=== PATIENT | male | born 1950 | race Caucasian/White ===

== ENCOUNTER 2016-06-26 05:43 | Emergency (ER) | payer SELFPAY ==
[2016-06-26 06:21] LABS: BASO # 0.2 K/mm3 (0.0-0.2); BASO % 1.9 % (0.0-1.0); EOS # 0.6 K/mm3 (0.0-0.50); EOS % 5.9 % (0.0-3.0); LARGE UNSTAINED CELL # 0.2 K/mm3 (0.0-0.4); LARGE UNSTAINED CELL % 2.3 % (0.0-4.0); LYMPH % 18.8 % (24.0-44.0); MEAN CORPUSCULAR HEMOGLOBIN 32.1 pg (27.0-33.0); MEAN CORPUSCULAR HGB CONC 35.4 g/dl (32.0-36.5); MEAN CORPUSCULAR VOLUME 90.7 fl (80.0-96.0); MONO # 0.7 K/mm3 (0.0-0.8); MONO % 7.3 % (0.0-5.0); NEUTROPHILS % 63.8 % (36.0-66.0); PLATELET COUNT, AUTOMATED 232 k/mm3 (150-450); RED CELL DISTRIBUTION WIDTH 13.1 % (11.5-14.5); WHITE BLOOD COUNT 9.4 K/mm3 (4.0-10.0)
[2016-06-26 06:56] LABS: ANION GAP 8 MEQ/L (8-16); BLOOD UREA NITROGEN 15 MG/DL (7-18); CALCIUM LEVEL 9.2 MG/DL (8.8-10.2); CARBON DIOXIDE LEVEL 30 MEQ/L (21-32); CHLORIDE LEVEL 100 MEQ/L (98-107); CREATININE FOR GFR 1.01 MG/DL (0.70-1.30); GLOMERULAR FILTRATION RATE > 60.0 (>49); GLUCOSE, FASTING 103 MG/DL (80-110); POTASSIUM SERUM 4.2 MEQ/L (3.5-5.1); SODIUM LEVEL 138 MEQ/L (136-145)
[2016-06-26 07:32] LABS: ALBUMIN 4.3 GM/DL (3.2-5.2); ALBUMIN/GLOBULIN RATIO 1.26 (1.00-1.93); ALKALINE PHOSPHATASE 72 U/L (45-117); ALT/SGPT 28 U/L (12-78); AST/SGOT 27 U/L (15-37); BILIRUBIN,DIRECT 0.1 MG/DL (0.0-0.2); BILIRUBIN,TOTAL 0.7 MG/DL (0.2-1.0); TOTAL PROTEIN 7.7 GM/DL (6.4-8.2)
[2016-06-26] MEDS ORDERED: ASPIRIN 81 MG CHEW TABLET As Ordered ONE (07:49)
--- NOTE | 2016-06-26 09:06 | EDDOCDS ---
Nurse's Notes [facility] Name: Quentin Betts Age: 65 yrs Sex: Male : 1950 Arrival Date: 06/26/2016 Time: 05:43 Bed 4 Private MD: Diagnosis: Chest pain, unspecified Presentation: 06/26 05:54 Presenting complaint: Patient states: Has been up all night with chest discomfort. Went kmg1 for a drive and got hot chocolate at [employer] then felt better. Upon returning home, pain returned. Mild cough. 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 Suicide/Homicide risk assessment- the patient denies having any suicidal and/or homicidal ideations and does not present with any other emotional, behavioral or mental health complaints. Status: Patient is not a service operations manager or dependent. Transition of care: patient was not received from another setting of care. 05:54 Acuity: JS Level 2 [facility] [place] 05:[place] Method Of Arrival: Walkin/Carried/[place]std [facility] [place] T[place] Assessment: 05:59 General: Appears in no apparent distress, comfortable, Behavior is appropriate for age, kmg1 cooperative, pleasant. Pain: Location: anterior aspect of left upper chest Pain currently is 5 out of 10 on a pain scale. Quality of pain is described as aching, dull, Pain began 1 day ago. Cardiovascular: Chest pain is described as Pain is 5 out of 10 on a pain scale. radiates Does not radiate. episodes are continuous began 1 day ago. Respiratory: Airway is patent Respiratory effort is even, unlabored, Respiratory pattern is regular, symmetrical. Historical: - Allergies: No known drug Allergies; - Home Meds: 1. atenolol 50 mg Oral tab 2 tabs once daily (Last dose: 06/26/2016 03:00) 2. lisinopril-hydrochlorothiazide 20-25 mg oral tab 1 tab once daily for Hypertension (Last dose: 06/25/2016) - PMHx: Hypertension; - PSHx: eye surgery; - Social history: Smoking status: Patient states was never smoker of tobacco. No barriers to communication noted, The patient speaks fluent [place] Citizen, Speaks appropriately for age. - : The pt / caregiver states he / she is not on anticoagulants. Home medication list is obtained from the patient. - Exposure Risk Screening:: None identified. Screenin:50 Screening information is obtained from the patient. Fall risk: No risks identified. jjr Assistance ADL's: requires no assistance with activities of daily living. Abuse/DV Screen: The patient / caregiver reports he/she is: not in a situation that causes fear, pain or injury. Nutritional screening: No deficits noted. Advance Directives: There is no active DNR order. home support is adequate. Assessment: 06:12 Adult Sepsis Screening: The patient does not have new or worsening altered mentation. mgs Patient's respiratory rate is less than 22. Systolic blood pressure is greater than 100. Patient has a qSOFA score of 0- Negative Sepsis Screen. General: Appears in no apparent distress, Behavior is appropriate for age, cooperative. Pain: Denies pain. Neurological: Level of Consciousness is awake, alert, Oriented to person, place, time. Cardiovascular: Capillary refill < 3 seconds Heart tones S1 S2 present Rhythm is sinus rhythm No ectopy. Cardiovascular: Chest pain is denied. Respiratory: Airway is patent Respiratory effort is even, unlabored, Respiratory pattern is regular, symmetrical. Derm: Skin is pink, warm & dry. 07:57 General: Appears in no apparent distress, well nourished, well groomed, Behavior is jjr appropriate for age. General: pt reports taking extra atenolol in the past to relieve left sided chest discomfort. Neurological: No deficits noted. Cardiovascular: Rhythm is sinus rhythm Chest pain is described as Pain is 1 out of 10 on a pain scale. is located in left anterior chest wall episodes are continuous. Respiratory: Airway is patent Respiratory effort is even, unlabored, Respiratory pattern is regular. Derm: Skin is pink, warm & dry. 09:03 General: Appears in no apparent distress. Cardiovascular: Rhythm is sinus rhythm Chest jjr pain is denied. Respiratory: No deficits noted. Derm: No deficits noted. Vital Signs: 05:59 BP 158 / 99; Pulse 62; Resp 18; Temp 97.9(TE); Pulse Ox 98% on R/A; Weight 81.65 kg kmg1 (R); Height 5 ft. 9 in. (175.26 cm) (R); Pain 5/10; 06:26 BP 149 / 90 (auto/); jjr 06:26 Pulse 62 MON; Pulse Ox 94% ; jjr 06:41 BP 149 / 87 (auto/); jjr 06:41 Pulse 60 MON; Pulse Ox 98% ; jjr 06:56 BP 152 / 83 (auto/); jjr 06:56 Pulse 60 MON; Resp 18; Pulse Ox 100% on R/A; Pain 1/10; jjr 07:55 BP 169 / 80 (auto/); jjr 07:56 Pulse 74 MON; Pulse Ox 100% ; jjr 08:25 BP 163 / 94 (auto/); jjr 08:25 Pulse 64 MON; Resp 18; Pulse Ox 95% on R/A; jjr 09:02 BP 167 / 85; Pulse 70; Resp 18; Temp 97.3(O); Pulse Ox 98% on R/A; Pain 0/10; jjr 05:59 Body Mass Index 26.58 (81.65 kg, 175.26 cm) [facility] [place]als: 05:59 Log In Time: June 26, 2016 at 05:43. [facility] [place] Course: 05:51 Patient visited by Sanjuanita Barragan. gjb 05:51 Patient moved to Waiting gjb 05:56 Triage Initiated km 06:05 Patient moved to 4 km 06:06 Cuong Love,RN is Primary Nurse. mgs 06:13 Patient visited by Cuong Love RN. mgs 06:13 Pt greeted and oriented to ED. Patient advised of names of staff involved in care, sussy location of call mo, wait times and NPO status. Patient has correct armband on for positive identification. Placed in gown. Bed in low position. Call light in reach. Side rails up X2. hospital monitor on. Pulse ox on. NIBP on. 06:13 EKG done. (by ED staff). Reviewed by Cuong Rudd DO. sussy 06:14 Patient visited by Prudence Kirby, JUAN JOSE. sussy 06:19 Patient visited by Cora Rivas,FELIPE. af2 06:19 The patient / caregiver is instructed regarding the plan of care and ED course. af2 06:19 Inserted saline lock: 18 gauge in right antecubital area and blood collected. The af2 patient tolerated the procedure well. 07:09 Garth Ortiz MD is Attending Physician. br1 07:18 Patient visited by Garth Ortiz MD. br1 07:57 Patient visited by Alyson Voss RN. jjr 08:40 Patient name changed from Quentin\Meg\Wendi\S\Roxane\S\ to Quentin\Meg\Shahid\S\Marlinhart. EDMS 08:42 [facility] Payment Agreement was scanned into [employer] and attached to record. lg 08:51 Patient visited by Garth Ortiz MD. br1 08:51 Guillermo Colvin PA is Referral Physician. br1 09:03 Discontinued lock intact, bleeding controlled, pressure dressing applied, No jjr redness/swelling at site. No procedures done that require assistance. Administered Medications: 07:56 Drug: Aspirin 324 mg [aspirin 81 mg chewable tablet (4 tabs)] Route: PO; jjr Order Results: Lab Order: Basic Metabolic Profile; SPEC'M 06/26/16 06:15 Test: GLUCOSE, FASTING; Value: 103; Range: 80-110; Units: MG/DL; Status: F Test: BLOOD UREA NITROGEN; Value: 15; Range: 7-18; Units: MG/DL; Status: F Test: CREATININE FOR GFR; Value: 1.01; Range: 0.70-1.30; Units: MG/DL; Status: F Test: GLOMERULAR FILTRATION RATE; Value: > 60.0; Range: >49; Status: F Test: SODIUM LEVEL; Value: 138; Range: 136-145; Units: MEQ/L; Status: F Test: POTASSIUM SERUM; Value: 4.2; Range: 3.5-5.1; Units: MEQ/L; Status: F Test: CHLORIDE LEVEL; Value: 100; Range: 98-107; Units: MEQ/L; Status: F Test: CARBON DIOXIDE LEVEL; Value: 30; Range: 21-32; Units: MEQ/L; Status: F Test: ANION GAP; Value: 8; Range: 8-16; Units: MEQ/L; Status: F Test: CALCIUM LEVEL; Value: 9.2; Range: 8.8-10.2; Units: MG/DL; Status: F Test Note: ; Units are mL/min/1.73 m2 Chronic Kidney Disease Staging per NKF: Stage I & II GFR >=60 Normal to Mildly Decreased Stage III GFR 30-59 Moderately Decreased Stage IV GFR 15-29 Severely Decreased Stage V GFR <15 Very Little GFR Left ESRD GFR <15 on SALVAGE REPAIRER Lab Order: CBC with Diff; SPEC'M 06/26/16 06:15 Test: WHITE BLOOD COUNT; Value: 9.4; Range: 4.0-10.0; Units: K/mm3; Status: F Test: RED BLOOD COUNT; Value: 5.36; Range: 4.30-6.10; Units: M/mm3; Status: F Test: HEMOGLOBIN; Value: 17.2; Range: 14.0-18.0; Units: g/dl; Status: F Test: HEMATOCRIT; Value: 48.6; Range: 42.0-52.0; Units: %; Status: F Test: MEAN CORPUSCULAR VOLUME; Value: 90.7; Range: 80.0-96.0; Units: fl; Status: F Test: MEAN CORPUSCULAR HEMOGLOBIN; Value: 32.1; Range: 27.0-33.0; Units: pg; Status: F Test: MEAN CORPUSCULAR HGB CONC; Value: 35.4; Range: 32.0-36.5; Units: g/dl; Status: F Test: RED CELL DISTRIBUTION WIDTH; Value: 13.1; Range: 11.5-14.5; Units: %; Status: F Test: PLATELET COUNT, AUTOMATED; Value: 232; Range: 150-450; Units: k/mm3; Status: F Test: NEUTROPHILS %; Value: 63.8; Range: 36.0-66.0; Units: %; Status: F Test: LYMPH %; Value: 18.8; Range: 24.0-44.0; Abnormal: Below low normal; Units: %; Status: F Test: MONO %; Value: 7.3; Range: 0.0-5.0; Abnormal: Above high normal; Units: %; Status: F Test: EOS %; Value: 5.9; Range: 0.0-3.0; Abnormal: Above high normal; Units: %; Status: F Test: BASO %; Value: 1.9; Range: 0.0-1.0; Abnormal: Above high normal; Units: %; Status: F Test: LARGE UNSTAINED CELL %; Value: 2.3; Range: 0.0-4.0; Units: %; Status: F Test: NEUTROPHILS #; Value: 6.0; Range: 1.8-7.7; Units: K/mm3; Status: F Test: LYMPH #; Value: 2.0; Range: 1.5-4.5; Units: K/mm3; Status: F Test: MONO #; Value: 0.7; Range: 0.0-0.8; Units: K/mm3; Status: F Test: EOS #; Value: 0.6; Range: 0.0-0.50; Abnormal: Above high normal; Units: K/mm3; Status: F Test: BASO #; Value: 0.2; Range: 0.0-0.2; Units: K/mm3; Status: F Test: LARGE UNSTAINED CELL #; Value: 0.2; Range: 0.0-0.4; Units: K/mm3; Status: F Lab Order: Cardiac Injury Profile; SPEC' 06/26/16 06:15 Test: CPK CREATINE PHOSPHOKINASE; Value: 102; Range: 39-308; Units: U/L; Status: F Test: CK-MB VALUE MASS; Value: 2.2; Range: 0.0-3.6; Units: NG/ML; Status: F Test: MB/CK RELATIVE INDEX; Value: 2.15; Range: < OR =4; Status: F Test Note: ; DIAGNOSIS CRITERIA MMB ng/ml Relative Index (RI) NON-AMI < or = 5 N/A LAMBERT ZONE > 5 < or = 4 AMI > 5 > 4 Lab Order: Troponin; [facility] 06/26/16 06:15 Test: TROPONIN I; Value: < 0.02; Range: < 0.10; Units: NG/ML; Status: F Test Note: ; Troponin I Reference Interval for [place]adows LOCI: 99th Percentile= 0.00-0.045 ng/ml Risk Stratification: <= 0.10 ng/ml Decreased Risk for Adverse Clinical Events. 0.10-1.50 ng/ml Increased Risk for Adverse Clinical Events. Evaluation of additional criterion and/or repeat testing in 2-6 hours is suggested to rule out myocardial damage. >= 1.50 ng/ml Indicative of Myocardial Injury. Lab Order: LIPASE; SPEC' 06/26/16 06:15 Test: LIPASE; Value: 194; Range: 73-393; Units: U/L; Status: F Lab Order: LIVER PROFILE; SPEC'M 06/26/16 06:15 Test: AST/SGOT; Value: 27; Range: 15-37; Units: U/L; Status: F Test: ALT/SGPT; Value: 28; Range: 12-78; Units: U/L; Status: F Test: ALKALINE PHOSPHATASE; Value: 72; Range: 45-117; Units: U/L; Status: F Test: BILIRUBIN,TOTAL; Value: 0.7; Range: 0.2-1.0; Units: MG/DL; Status: F Test: BILIRUBIN,DIRECT; Value: 0.1; Range: 0.0-0.2; Units: MG/DL; Status: F Test: TOTAL PROTEIN; Value: 7.7; Range: 6.4-8.2; Units: GM/DL; Status: F Test: ALBUMIN; Value: 4.3; Range: 3.2-5.2; Units: GM/DL; Status: F Test: ALBUMIN/GLOBULIN RATIO; Value: 1.26; Range: 1.00-1.93; Status: F Outcome: 08:51 Patient left against medical advice. br1 09:03 Discharge Assessment: patient administered narcotics - no. The following High Risk jjr Discharge criteria are identified: None. The patient is leaving AMA: AMA form signed, Notification of AMA status is made to the ED attending physician. Condition: stable. Discharge instructions given to patient, Instructed on discharge instructions, follow up and referral plans. Demonstrated understanding of instructions. No special radiology studies were completed. Property :Personal belongings accompany Pt. 09:05 Patient left the ED. jjr Signatures: Dispatcher [employer] EDMaria G Sultana, RN RN kmg1 Nilda Mckinley, Garth Burkett lg, MD MD br1 Alyson Voss RN RN jjPrudence Santiago, Cuong Mclean RN RN mgs Fulton, Amber, RN RN af2 Sanjuanita Barragan MTDD
--- NOTE | 2016-06-26 09:06 | EDDOCDS ---
Physician Documentation [facility] Name: Quentin Betts Age: 65 yrs Sex: Male : 1950 Arrival Date: 06/26/2016 Time: 05:43 Bed 4 Private MD: Disposition: 06/26/16 08:51 Patient has left against medical advice. Impression: Chest pain, unspecified. - Patients states they are going to Home/Self Care. - Condition is Stable. - Discharge Instructions: Nonspecific Chest Pain. Medication Reconciliation, Local Pharmacy Hours form. Follow up: Guillermo Colvin PA; When: As soon as possible; Reason: Further diagnostic work-up, Recheck today's complaints. - Problem is new. - Symptoms are unchanged. - Notes: You were seen in the ED for chest pain. Bloodwork along with EKG of the heart and chest Xray showed no clear cause of the symptoms. Although recommended to stay for observation and further evaluation you have declined and elected to leave against our medical advice. Call your doctor to arrange to be seen as soon as possible for ongoing evaluation and return to the ED at any time if you change your mind or your symptoms worsen. Historical: - Allergies: No known drug Allergies; - Home Meds: 1. atenolol 50 mg Oral tab 2 tabs once daily (Last dose: 06/26/2016 03:00) 2. lisinopril-hydrochlorothiazide 20-25 mg oral tab 1 tab once daily for Hypertension (Last dose: 06/25/2016) - PMHx: Hypertension; - PSHx: eye surgery; - Social history: Smoking status: Patient states was never smoker of tobacco. No barriers to communication noted, The patient speaks fluent [place], Speaks appropriately for age. - : The pt / caregiver states he / she is not on anticoagulants. Home medication list is obtained from the patient. - Exposure Risk Screening:: None identified. Vital Signs: 06/26 05:59 BP 158 / 99; Pulse 62; Resp 18; Temp 97.9(TE); Pulse Ox 98% on R/A; Weight 81.65 kg / kmg1 180.01 lbs (R); Height 5 ft. 9 in. (175.26 cm) (R); Pain 5/10; 06:26 BP 149 / 90 (auto/); jjr 06:26 Pulse 62 MON; Pulse Ox 94% ; jjr 06:41 BP 149 / 87 (auto/); jjr 06:41 Pulse 60 MON; Pulse Ox 98% ; jjr 06:56 BP 152 / 83 (auto/); jjr 06:56 Pulse 60 MON; Resp 18; Pulse Ox 100% on R/A; Pain 1/10; jjr 07:55 BP 169 / 80 (auto/); jjr 07:56 Pulse 74 MON; Pulse Ox 100% ; jjr 08:25 BP 163 / 94 (auto/); jjr 08:25 Pulse 64 MON; Resp 18; Pulse Ox 95% on R/A; jjr 09:02 BP 167 / 85; Pulse 70; Resp 18; Temp 97.3(O); Pulse Ox 98% on R/A; Pain 0/10; jjr 05:59 Body Mass Index 26.58 (81.65 kg, 175.26 cm) km MDM: 06:07 Forensic Document Examiner/Pulse Ox/q 30 min VS ordered. jun 06:07 IV Saline Lock ordered. jun 06:07 Rhythm Strip to chart ordered. jun 06:07 Undress patient appropriately for examination ordered. jun 06:07 Basic Metabolic Profile Ordered. EDMS 06:07 CBC with Diff Ordered. EDMS 06:07 Cardiac Injury Profile Ordered. EDMS 06:07 Troponin Ordered. EDMS 06:08 ECG WITH READING ER PHYS+CARDIAG ordered. EDMS 07:10 CBC with Diff Reviewed. br1 07:10 Basic Metabolic Profile Reviewed. br1 07:10 Cardiac Injury Profile Reviewed. br1 07:10 Troponin Reviewed. br1 07:19 Chest, 2 View (pa\E\lat) Ordered. EDMS 07:21 LIPASE Ordered. EDMS 07:21 LIVER PROFILE Ordered. EDMS 07:24 Aspirin 324 mg PO once ordered. br1 07:46 Financial registration complete. lg 08:42 [facility] Payment Agreement was scanned into [employer] and attached to record. lg Administered Medications: 07:56 Drug: Aspirin 324 mg [aspirin 81 mg chewable tablet (4 tabs)] Route: PO; jjr Signatures: Dispatcher [employer] EDMS Maria G Morillo RN RN kmg1 Kareen Nelson RN RN jan Ganter, LoriLee, Reg Reg lg Garth Ortiz MD MD br1 Alyson Voss RN RN jjr The chart was reviewed and I authenticate all verbal orders and agree with the evaluation and treatment provided.Corrections: (The following items were deleted from the chart) 07: 07:19 LIVER PROFILE+LAB ordered. EDMS EDMS 07: 07:19 LIPASE+LAB ordered. EDMS EDMS Attachments: 08:42 [facility] Payment Agreement lg MTDD
--- NOTE | 2016-06-26 09:17 | REP ---
CHEST X-RAY: TWO VIEWS. History: Chest pain. Findings: The lungs are well inflated and clear. Pleural angles are sharp. Heart size is normal. No significant bony abnormality is seen. Impression: No active disease. Signed by Rupesh Snowden MD 06/26/2016 10:30 A
--- NOTE | 2016-06-26 09:30 | ECGEPIP ---
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
--- NOTE | 2016-06-28 10:06 | EDDOCDS ---
Nurse's Notes [facility] Name: Eli Betts Age: 65 yrs Sex: Male : 1950 Arrival Date: 06/26/2016 Time: 05:43 Bed 4 Private MD: Diagnosis: Chest pain, unspecified Presentation: 06/26 05:54 Presenting complaint: Patient states: Has been up all night with chest discomfort. Went kmg1 for a drive and got hot chocolate at [employer] then felt better. Upon returning home, pain returned. Mild cough. 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 Suicide/Homicide risk assessment- the patient denies having any suicidal and/or homicidal ideations and does not present with any other emotional, behavioral or mental health complaints. 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 Transition of care: patient was not received from another setting of care. 05:54 Acuity: JS Level 2 [facility] [place] 05:54 Method Of Arrival: Walkin/Carried/Asstd [facility] [place] Triage Assessment: 05:59 General: Appears in no apparent distress, comfortable, Behavior is appropriate for age, kmg1 cooperative, pleasant. Pain: Location: anterior aspect of left upper chest Pain currently is 5 out of 10 on a pain scale. Quality of pain is described as aching, dull, Pain began 1 day ago. Cardiovascular: Chest pain is described as Pain is 5 out of 10 on a pain scale. radiates Does not radiate. episodes are continuous began 1 day ago. Respiratory: Airway is patent Respiratory effort is even, unlabored, Respiratory pattern is regular, symmetrical. Historical: - Allergies: No known drug Allergies; - Home Meds: 1. atenolol 50 mg Oral tab 2 tabs once daily (Last dose: 06/26/2016 03:00) 2. lisinopril-hydrochlorothiazide 20-25 mg oral tab 1 tab once daily for Hypertension (Last dose: 06/25/2016) - PMHx: Hypertension; - PSHx: eye surgery; - Social history: Smoking status: Patient states was never smoker of tobacco. No barriers to communication noted, The patient speaks fluent Guinean, Speaks appropriately for age. - : The pt / caregiver states he / she is not on anticoagulants. Home medication list is obtained from the patient. - Exposure Risk Screening:: None identified. Screenin:50 Screening information is obtained from the patient. Fall risk: No risks identified. jjr Assistance ADL's: requires no assistance with activities of daily living. Abuse/DV Screen: The patient / caregiver reports he/she is: not in a situation that causes fear, pain or injury. Nutritional screening: No deficits noted. Advance Directives: There is no active DNR order. home support is adequate. Assessment: 06:12 Adult Sepsis Screening: The patient does not have new or worsening altered mentation. mgs Patient's respiratory rate is less than 22. Systolic blood pressure is greater than 100. Patient has a qSOFA score of 0- Negative Sepsis Screen. General: Appears in no apparent distress, Behavior is appropriate for age, cooperative. Pain: Denies pain. Neurological: Level of Consciousness is awake, alert, Oriented to person, place, time. Cardiovascular: Capillary refill < 3 seconds Heart tones S1 S2 present Rhythm is sinus rhythm No ectopy. Cardiovascular: Chest pain is denied. Respiratory: Airway is patent Respiratory effort is even, unlabored, Respiratory pattern is regular, symmetrical. Derm: Skin is pink, warm & dry. 07:57 General: Appears in no apparent distress, well nourished, well groomed, Behavior is jjr appropriate for age. General: pt reports taking extra atenolol in the past to relieve left sided chest discomfort. Neurological: No deficits noted. Cardiovascular: Rhythm is sinus rhythm Chest pain is described as Pain is 1 out of 10 on a pain scale. is located in left anterior chest wall episodes are continuous. Respiratory: Airway is patent Respiratory effort is even, unlabored, Respiratory pattern is regular. Derm: Skin is pink, warm & dry. 09:03 General: Appears in no apparent distress. Cardiovascular: Rhythm is sinus rhythm Chest jjr pain is denied. Respiratory: No deficits noted. Derm: No deficits noted. Vital Signs: 05:59 BP 158 / 99; Pulse 62; Resp 18; Temp 97.9(TE); Pulse Ox 98% on R/A; Weight 81.65 kg kmg1 (R); Height 5 ft. 9 in. (175.26 cm) (R); Pain 5/10; 06:26 BP 149 / 90 (auto/); jjr 06:26 Pulse 62 MON; Pulse Ox 94% ; jjr 06:41 BP 149 / 87 (auto/); jjr 06:41 Pulse 60 MON; Pulse Ox 98% ; jjr 06:56 BP 152 / 83 (auto/); jjr 06:56 Pulse 60 MON; Resp 18; Pulse Ox 100% on R/A; Pain 1/10; jjr 07:55 BP 169 / 80 (auto/); jjr 07:56 Pulse 74 MON; Pulse Ox 100% ; jjr 08:25 BP 163 / 94 (auto/); jjr 08:25 Pulse 64 MON; Resp 18; Pulse Ox 95% on R/A; jjr 09:02 BP 167 / 85; Pulse 70; Resp 18; Temp 97.3(O); Pulse Ox 98% on R/A; Pain 0/10; jjr 05:59 Body Mass Index 26.58 (81.65 kg, 175.26 cm) [facility] [place] Vitals: 05:59 Log In Time: June 26, 2016 at 05:43. [facility] [place] ED Course: 05:51 Patient visited by Sanjuanita Barragan. gjb 05:51 Patient moved to Waiting gjb 05:56 Triage Initiated km 06:05 Patient moved to 4 km 06:06 Marianne Love,RN is Primary Nurse. mgs 06:13 Patient visited by Marianne Love RN. mgs 06:13 Pt greeted and oriented to ED. Patient advised of names of staff involved in care, sussy location of call mo, wait times and NPO status. Patient has correct armband on for positive identification. Placed in gown. Bed in low position. Call light in reach. Side rails up X2. playground monitor on. Pulse ox on. NIBP on. 06:13 EKG done. (by ED staff). Reviewed by Marianne Rudd DO. sussy 06:14 Patient visited by Prudence Kirby, JUAN JOSE. sussy 06:19 Patient visited by Cora Rivas,FELIPE. af2 06:19 The patient / caregiver is instructed regarding the plan of care and ED course. af2 06:19 Inserted saline lock: 18 gauge in right antecubital area and blood collected. The af2 patient tolerated the procedure well. 07:09 Garth Ortiz MD is Attending Physician. br1 07:18 Patient visited by Garth Ortiz MD. br1 07:57 Patient visited by Alyson Voss RN. jjr 08:40 Patient name changed from Eli\Meg\Wendi\S\Inggisel\S\ to Eli\Meg\Shahid\S\Inglehart. EDMS 08:42 [facility] Payment Agreement was scanned into [employer] and attached to record. lg 08:51 Patient visited by Garth Ortiz MD. br1 08:51 Guillermo Colvin PA is Referral Physician. br1 09:03 Discontinued lock intact, bleeding controlled, pressure dressing applied, No jjr redness/swelling at site. No procedures done that require assistance. 09:23 Chest, 2 View (pa\E\lat) Returned. EDMS 09:46 EKG-ADULT Returned. EDMS 13:13 Refusal of Services was scanned into [employer] and attached to record. gb 13:13 T-Sheet-- Draft Copy was scanned into [employer] and attached to record. gb 13:13 ECG/EKG was scanned into [employer] and attached to record. gb Administered Medications: 07:56 Drug: Aspirin 324 mg [aspirin 81 mg chewable tablet (4 tabs)] Route: PO; jjr Attachments: 13:13 Refusal of Services gb Order Results: Lab Order: Basic Metabolic Profile; [facility] 06/26/16 06:15 Test: GLUCOSE, FASTING; Value: 103; Range: 80-110; Units: MG/DL; Status: F Test: BLOOD UREA NITROGEN; Value: 15; Range: 7-18; Units: MG/DL; Status: F Test: CREATININE FOR GFR; Value: 1.01; Range: 0.70-1.30; Units: MG/DL; Status: F Test: GLOMERULAR FILTRATION RATE; Value: > 60.0; Range: >49; Status: F Test: SODIUM LEVEL; Value: 138; Range: 136-145; Units: MEQ/L; Status: F Test: POTASSIUM SERUM; Value: 4.2; Range: 3.5-5.1; Units: MEQ/L; Status: F Test: CHLORIDE LEVEL; Value: 100; Range: 98-107; Units: MEQ/L; Status: F Test: CARBON DIOXIDE LEVEL; Value: 30; Range: 21-32; Units: MEQ/L; Status: F Test: ANION GAP; Value: 8; Range: 8-16; Units: MEQ/L; Status: F Test: CALCIUM LEVEL; Value: 9.2; Range: 8.8-10.2; Units: MG/DL; Status: F Test Note: ; Units are mL/min/1.73 m2 Chronic Kidney Disease Staging per NKF: Stage I & II GFR >=60 Normal to Mildly Decreased Stage III GFR 30-59 Moderately Decreased Stage IV GFR 15-29 Severely Decreased Stage V GFR <15 Very Little GFR Left ESRD GFR <15 on WELL LOGGING CAPTAIN Lab Order: CBC with Diff; SPEC'M 06/26/16 06:15 Test: WHITE BLOOD COUNT; Value: 9.4; Range: 4.0-10.0; Units: K/mm3; Status: F Test: RED BLOOD COUNT; Value: 5.36; Range: 4.30-6.10; Units: M/mm3; Status: F Test: HEMOGLOBIN; Value: 17.2; Range: 14.0-18.0; Units: g/dl; Status: F Test: HEMATOCRIT; Value: 48.6; Range: 42.0-52.0; Units: %; Status: F Test: MEAN CORPUSCULAR VOLUME; Value: 90.7; Range: 80.0-96.0; Units: fl; Status: F Test: MEAN CORPUSCULAR HEMOGLOBIN; Value: 32.1; Range: 27.0-33.0; Units: pg; Status: F Test: MEAN CORPUSCULAR HGB CONC; Value: 35.4; Range: 32.0-36.5; Units: g/dl; Status: F Test: RED CELL DISTRIBUTION WIDTH; Value: 13.1; Range: 11.5-14.5; Units: %; Status: F Test: PLATELET COUNT, AUTOMATED; Value: 232; Range: 150-450; Units: k/mm3; Status: F Test: NEUTROPHILS %; Value: 63.8; Range: 36.0-66.0; Units: %; Status: F Test: LYMPH %; Value: 18.8; Range: 24.0-44.0; Abnormal: Below low normal; Units: %; Status: F Test: MONO %; Value: 7.3; Range: 0.0-5.0; Abnormal: Above high normal; Units: %; Status: F Test: EOS %; Value: 5.9; Range: 0.0-3.0; Abnormal: Above high normal; Units: %; Status: F Test: BASO %; Value: 1.9; Range: 0.0-1.0; Abnormal: Above high normal; Units: %; Status: F Test: LARGE UNSTAINED CELL %; Value: 2.3; Range: 0.0-4.0; Units: %; Status: F Test: NEUTROPHILS #; Value: 6.0; Range: 1.8-7.7; Units: K/mm3; Status: F Test: LYMPH #; Value: 2.0; Range: 1.5-4.5; Units: K/mm3; Status: F Test: MONO #; Value: 0.7; Range: 0.0-0.8; Units: K/mm3; Status: F Test: EOS #; Value: 0.6; Range: 0.0-0.50; Abnormal: Above high normal; Units: K/mm3; Status: F Test: BASO #; Value: 0.2; Range: 0.0-0.2; Units: K/mm3; Status: F Test: LARGE UNSTAINED CELL #; Value: 0.2; Range: 0.0-0.4; Units: K/mm3; Status: F Lab Order: Cardiac Injury Profile; SPEC'M 06/26/16 06:15 Test: CPK CREATINE PHOSPHOKINASE; Value: 102; Range: 39-308; Units: U/L; Status: F Test: CK-MB VALUE MASS; Value: 2.2; Range: 0.0-3.6; Units: NG/ML; Status: F Test: MB/CK RELATIVE INDEX; Value: 2.15; Range: < OR =4; Status: F Test Note: ; DIAGNOSIS CRITERIA MMB ng/ml Relative Index (RI) NON-AMI < or = 5 N/A LAMBERT ZONE > 5 < or = 4 AMI > 5 > 4 Lab Order: Troponin; SPEC'M 06/26/16 06:15 Test: TROPONIN I; Value: < 0.02; Range: < 0.10; Units: NG/ML; Status: F Test Note: ; Troponin I Reference Interval for Siemens [place] LOCI: 99th Percentile= 0.00-0.045 ng/ml Risk Stratification: <= 0.10 ng/ml Decreased Risk for Adverse Clinical Events. 0.10-1.50 ng/ml Increased Risk for Adverse Clinical Events. Evaluation of additional criterion and/or repeat testing in 2-6 hours is suggested to rule out myocardial damage. >= 1.50 ng/ml Indicative of Myocardial Injury. Lab Order: LIPASE; SPEC'M 06/26/16 06:15 Test: LIPASE; Value: 194; Range: 73-393; Units: U/L; Status: F Lab Order: LIVER PROFILE; SPEC'M 06/26/16 06:15 Test: AST/SGOT; Value: 27; Range: 15-37; Units: U/L; Status: F Test: ALT/SGPT; Value: 28; Range: 12-78; Units: U/L; Status: F Test: ALKALINE PHOSPHATASE; Value: 72; Range: 45-117; Units: U/L; Status: F Test: BILIRUBIN,TOTAL; Value: 0.7; Range: 0.2-1.0; Units: MG/DL; Status: F Test: BILIRUBIN,DIRECT; Value: 0.1; Range: 0.0-0.2; Units: MG/DL; Status: F Test: TOTAL PROTEIN; Value: 7.7; Range: 6.4-8.2; Units: GM/DL; Status: F Test: ALBUMIN; Value: 4.3; Range: 3.2-5.2; Units: GM/DL; Status: F Test: ALBUMIN/GLOBULIN RATIO; Value: 1.26; Range: 1.00-1.93; Status: F Radiology Order: EKG-ADULT Test: EKG-ADULT REASON FOR EXAMINATION: Chest Pain; Stationary ECG Study; [facility] - ED; ; Test Date: 2016-06-26; Pat Name: ELI BETTS Department:; Room: -; Gender: M Nurse Emergency: henrique; : 1950 Requested By: MARIANNE Laurent; Order Number: [id number] Balbir MD: Claudia Neves; Measurements; Intervals [place]; Rate: 60 P: 47; ME: 139 QRS: 7; QRSD: 92 T: 52; QT: 380; QTc: 381; Interpretive Statements; SINUS RHYTHM; NSTTW ABNORMALITY; NO PRIOR FOR COMPARISON; Electronically Signed On 06-26-2016 9:29:49 EST by Claudia Neves; Radiology Order: Chest, 2 View (pa\E\lat) Test: Chest, 2 View (pa\E\lat) REASON FOR EXAMINATION: Chest Pain; CHEST X-RAY: TWO VIEWS.; ; History: Chest pain.; ; Findings: The lungs are well inflated and clear. Pleural angles are sharp.; Heart size is normal. No significant bony abnormality is seen.; ; Impression:; ; No active disease.; ; ; Signed by; Rupesh Snowden MD 06/26/2016 10:30 A; Outcome: 08:51 Patient left against medical advice. br1 09:03 Discharge Assessment: patient administered narcotics - no. The following High Risk jjr Discharge criteria are identified: None. The patient is leaving AMA: AMA form signed, Notification of AMA status is made to the ED attending physician. Condition: stable. Discharge instructions given to patient, Instructed on discharge instructions, follow up and referral plans. Demonstrated understanding of instructions. No special radiology studies were completed. Property :Personal belongings accompany Pt. 09:05 Patient left the ED. jjr Signatures: Dispatcher [employer] EDMS Maria G Morillo, RN RN kmg1 Jacquelyn Styles, Reg Reg gb Nilda Mckinley, Reg Reg lg Garth Ortiz MD MD br1 Alyson Voss RN RN jjr Prudence Kirby, JUAN JOSE SPANISH LECTURER Marianne Pittman RN RN mgs Fulton, Amber, RN RN af2 Sanjuanita Barragan Chart Complete MTDD
--- NOTE | 2016-06-28 10:06 | EDDOCDS ---
Physician Documentation [facility] Name: Quentin Betts Age: 65 yrs Sex: Male : 1950 Arrival Date: 06/26/2016 Time: 05:43 Bed 4 Private MD: Disposition: 06/26/16 08:51 Patient has left against medical advice. Impression: Chest pain, unspecified. - Patients states they are going to Home/Self Care. - Condition is Stable. - Discharge Instructions: Nonspecific Chest Pain. Medication Reconciliation, Local Pharmacy Hours form. Follow up: Guillermo Colvin PA; When: As soon as possible; Reason: Further diagnostic work-up, Recheck today's complaints. - Problem is new. - Symptoms are unchanged. - Notes: You were seen in the ED for chest pain. Bloodwork along with EKG of the heart and chest Xray showed no clear cause of the symptoms. Although recommended to stay for observation and further evaluation you have declined and elected to leave against our medical advice. Call your doctor to arrange to be seen as soon as possible for ongoing evaluation and return to the ED at any time if you change your mind or your symptoms worsen. Historical: - Allergies: No known drug Allergies; - Home Meds: 1. atenolol 50 mg Oral tab 2 tabs once daily (Last dose: 06/26/2016 03:00) 2. lisinopril-hydrochlorothiazide 20-25 mg oral tab 1 tab once daily for Hypertension (Last dose: 06/25/2016) - PMHx: Hypertension; - PSHx: eye surgery; - Social history: Smoking status: Patient states was never smoker of tobacco. No barriers to communication noted, The patient speaks fluent Hungarian, Speaks appropriately for age. - : The pt / caregiver states he / she is not on anticoagulants. Home medication list is obtained from the patient. - Exposure Risk Screening:: None identified. Vital Signs: 06/26 05:59 BP 158 / 99; Pulse 62; Resp 18; Temp 97.9(TE); Pulse Ox 98% on R/A; Weight 81.65 kg / kmg1 180.01 lbs (R); Height 5 ft. 9 in. (175.26 cm) (R); Pain 5/10; 06:26 BP 149 / 90 (auto/); jjr 06:26 Pulse 62 MON; Pulse Ox 94% ; jjr 06:41 BP 149 / 87 (auto/); jjr 06:41 Pulse 60 MON; Pulse Ox 98% ; jjr 06:56 BP 152 / 83 (auto/); jjr 06:56 Pulse 60 MON; Resp 18; Pulse Ox 100% on R/A; Pain 1/10; jjr 07:55 BP 169 / 80 (auto/); jjr 07:56 Pulse 74 MON; Pulse Ox 100% ; jjr 08:25 BP 163 / 94 (auto/); jjr 08:25 Pulse 64 MON; Resp 18; Pulse Ox 95% on R/A; jjr 09:02 BP 167 / 85; Pulse 70; Resp 18; Temp 97.3(O); Pulse Ox 98% on R/A; Pain 0/10; jjr 05:59 Body Mass Index 26.58 (81.65 kg, 175.26 cm) [facility] [place]DM: 06:07 Mail 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 jun 06:07 IV Saline Lock ordered. jun 06:07 Rhythm Strip to chart ordered. jun 06:07 Undress patient appropriately for examination ordered. jun 06:07 Basic Metabolic Profile Ordered. EDMS 06:07 CBC with Diff Ordered. EDMS 06:07 Cardiac Injury Profile Ordered. EDMS 06:07 Troponin Ordered. EDMS 06:08 ECG WITH READING ER PHYS+CARDIAG ordered. EDMS 07:10 CBC with Diff Reviewed. br1 07:10 Basic Metabolic Profile Reviewed. br1 07:10 Cardiac Injury Profile Reviewed. br1 07:10 Troponin Reviewed. br1 07:19 Chest, 2 View (pa\E\lat) Ordered. EDMS 07:21 LIPASE Ordered. EDMS 07:21 LIVER PROFILE Ordered. EDMS 07:24 Aspirin 324 mg PO once ordered. br1 07:46 Financial registration complete. lg 08:42 [facility] [place] Payment Agreement was scanned into [employer] and attached to record. lg 13:13 Refusal of Services was scanned into [employer] and attached to record. gb 13:13 T-Sheet-- Draft Copy was scanned into [employer] and attached to record. gb 13:13 ECG/EKG was scanned into [employer] and attached to record. gb Administered Medications: 07:56 Drug: Aspirin 324 mg [aspirin 81 mg chewable tablet (4 tabs)] Route: PO; jjr Signatures: Dispatcher [employer] EDMaria G Sultana, RN RN kmg1 Kareen Nelson RN RN jan Barnhardt, Gloria, Reg Reg gb Nilda Mckinley, Reg Reg lg Garht Ortiz MD MD br1 Alyson Voss, RN RN jjr The chart was reviewed and I authenticate all verbal orders and agree with the evaluation and treatment provided.Corrections: (The following items were deleted from the chart) : 07:19 LIVER PROFILE+LAB ordered. EDMS EDMS 07 07:19 LIPASE+LAB ordered. EDMS EDMS Attachments: 08:42 [facility] [place] Payment Agreement lg 13:13 T-Sheet-- Draft Copy gb 13:13 ECG/EKG gb Chart Complete MTDD
--- NOTE | 2016-06-28 10:06 | EDDOCDS ---
Physician Documentation [facility] Name: Quentin Betts Age: 65 yrs Sex: Male : 1950 Arrival Date: 06/26/2016 Time: 05:43 Bed 4 Private MD: Disposition: 06/26/16 08:51 Patient has left against medical advice. Impression: Chest pain, unspecified. - Patients states they are going to Home/Self Care. - Condition is Stable. - Discharge Instructions: Nonspecific Chest Pain. Medication Reconciliation, Local Pharmacy Hours form. Follow up: Guillermo Colvin PA; When: As soon as possible; Reason: Further diagnostic work-up, Recheck today's complaints. - Problem is new. - Symptoms are unchanged. - Notes: You were seen in the ED for chest pain. Bloodwork along with EKG of the heart and chest Xray showed no clear cause of the symptoms. Although recommended to stay for observation and further evaluation you have declined and elected to leave against our medical advice. Call your doctor to arrange to be seen as soon as possible for ongoing evaluation and return to the ED at any time if you change your mind or your symptoms worsen. Historical: - Allergies: No known drug Allergies; - Home Meds: 1. atenolol 50 mg Oral tab 2 tabs once daily (Last dose: 06/26/2016 03:00) 2. lisinopril-hydrochlorothiazide 20-25 mg oral tab 1 tab once daily for Hypertension (Last dose: 06/25/2016) - PMHx: Hypertension; - PSHx: eye surgery; - Social history: Smoking status: Patient states was never smoker of tobacco. No barriers to communication noted, The patient speaks fluent [place], Speaks appropriately for age. - : The pt / caregiver states he / she is not on anticoagulants. Home medication list is obtained from the patient. - Exposure Risk Screening:: None identified. Vital Signs: 06/26 05:59 BP 158 / 99; Pulse 62; Resp 18; Temp 97.9(TE); Pulse Ox 98% on R/A; Weight 81.65 kg / kmg1 180.01 lbs (R); Height 5 ft. 9 in. (175.26 cm) (R); Pain 5/10; 06:26 BP 149 / 90 (auto/); jjr 06:26 Pulse 62 MON; Pulse Ox 94% ; jjr 06:41 BP 149 / 87 (auto/); jjr 06:41 Pulse 60 MON; Pulse Ox 98% ; jjr 06:56 BP 152 / 83 (auto/); jjr 06:56 Pulse 60 MON; Resp 18; Pulse Ox 100% on R/A; Pain 1/10; jjr 07:55 BP 169 / 80 (auto/); jjr 07:56 Pulse 74 MON; Pulse Ox 100% ; jjr 08:25 BP 163 / 94 (auto/); jjr 08:25 Pulse 64 MON; Resp 18; Pulse Ox 95% on R/A; jjr 09:02 BP 167 / 85; Pulse 70; Resp 18; Temp 97.3(O); Pulse Ox 98% on R/A; Pain 0/10; jjr 05:59 Body Mass Index 26.58 (81.65 kg, 175.26 cm) [facility] [place] MDM: 06:07 Improvement Lead/Pulse Ox/q 30 min VS ordered. jun 06:07 IV Saline Lock ordered. jun 06:07 Rhythm Strip to chart ordered. jun 06:07 Undress patient appropriately for examination ordered. jun 06:07 Basic Metabolic Profile Ordered. EDMS 06:07 CBC with Diff Ordered. EDMS 06:07 Cardiac Injury Profile Ordered. EDMS 06:07 Troponin Ordered. EDMS 06:08 ECG WITH READING ER PHYS+CARDIAG ordered. EDMS 07:10 CBC with Diff Reviewed. br1 07:10 Basic Metabolic Profile Reviewed. br1 07:10 Cardiac Injury Profile Reviewed. br1 07:10 Troponin Reviewed. br1 07:19 Chest, 2 View (pa\E\lat) Ordered. EDMS 07:21 LIPASE Ordered. EDMS 07:21 LIVER PROFILE Ordered. EDMS 07:24 Aspirin 324 mg PO once ordered. br1 07:46 Financial registration complete. lg 08:42 [facility] Payment Agreement was scanned into [employer] and attached to record. lg 13:13 Refusal of Services was scanned into [employer] and attached to record. gb 13:13 T-Sheet-- Draft Copy was scanned into [employer] and attached to record. gb 13:13 ECG/EKG was scanned into [employer] and attached to record. gb Administered Medications: 07:56 Drug: Aspirin 324 mg [aspirin 81 mg chewable tablet (4 tabs)] Route: PO; jjr Signatures: Dispatcher [employer] EDMaria G Sultana, RN RN kmg1 Kareen Nelson RN RN jan Barnhardt, Gloria, Reg Reg gb Nilda Mckinley, Reg Reg lg Garth Ortiz MD MD br1 Alyson Voss, RN RN jjr The chart was reviewed and I authenticate all verbal orders and agree with the evaluation and treatment provided.Corrections: (The following items were deleted from the chart) : 07:19 LIVER PROFILE+LAB ordered. EDMS EDMS 07 07:19 LIPASE+LAB ordered. EDMS EDMS Attachments: 08:42 [facility] Payment Agreement lg 13:13 T-Sheet-- Draft Copy gb 13:13 ECG/EKG gb Chart Complete MTDD
== END 2016-06-26 08:53 | disposition left against medical advice (07) ==
LOC: M ED 05:43
DX: R07.9 Chest pain, unspecified (principal); I10 Essential (primary) hypertension; Z79.899 Other long term (current) drug therapy

== ENCOUNTER 2019-11-12 00:15 | Emergency (ER) | payer SELFPAY ==
[~2019-11-12] VITALS: Ht 172.7 cm; Wt 82.6 kg
[2019-11-12 00:17] VITALS: BP 161/101
== END 2019-11-12 00:53 | disposition left against medical advice (07) ==
LOC: M ED 00:15
DX: Z53.21 Procedure and treatment not carried out due to patient leaving prior to being seen by health care provider (principal)

== ENCOUNTER 2023-07-11 06:49 | Emergency (ER) | payer MEDICARE, SELFPAY ==
[~2023-07-11] VITALS: Ht 172.7 cm; Wt 75.3 kg
[2023-07-11 07:36] LABS: BASO # 0.1 10^3/uL (0.0-0.2); BASO % 0.6 % (0.0-1.0); EOS # 0.5 10^3/uL (0.0-0.5); EOS % 3.8 % (0.0-3.0); HEMATOCRIT 30.9 % (42.0-52.0); HEMOGLOBIN 9.5 g/dl (13.5-17.5); LYMPH # 1.5 10^3/uL (1.5-5.0); LYMPH % 11.6 % (24.0-44.0); MEAN CORPUSCULAR HGB CONC 30.7 g/dl (32.0-36.5); MONO # 0.8 10^3/uL (0.0-0.8); MONO % 6.1 % (2.0-8.0); NEUTROPHILS # 9.9 10^3/uL (1.5-8.5); NEUTROPHILS % 77.4 % (36.0-66.0); PLATELET COUNT, AUTOMATED 484 10^3/uL (150-450); RED BLOOD COUNT 3.96 10^6/uL (4.30-6.10); WHITE BLOOD COUNT 12.8 10^3/uL (4.0-10.0)
[2023-07-11 07:57] LABS: CK-MB VALUE MASS < 1.0 NG/ML (<3.6)
[2023-07-11 07:58] LABS: BLOOD UREA NITROGEN 15 MG/DL (9-23); CALCIUM LEVEL 9.7 MG/DL (8.3-10.6); CARBON DIOXIDE LEVEL 31 MMOL/L (20-31); CHLORIDE LEVEL 102 MMOL/L (98-107); CPK CREATINE PHOSPHOKINASE 52 U/L (46-171); CREATININE FOR GFR 1.03 MG/DL (0.70-1.30); GLOMERULAR FILTRATION RATE > 60.0 (>42); GLUCOSE, FASTING 121 MG/DL (74-106); MB/CK RELATIVE INDEX 1.92 (< OR =4); POTASSIUM SERUM 3.7 MMOL/L (3.5-5.1); SODIUM LEVEL 140 MMOL/L (136-145)
[2023-07-11] MEDS ORDERED: ATEN50TA2 (08:31)
[2023-07-11] MEDS ORDERED: LISI20TA37 (08:31)
[2023-07-11] MEDS ORDERED: DIPH-389 PO (08:31)
[2023-07-11] MEDS ORDERED: ZOLO100T (08:31)
[2023-07-11] MEDS ORDERED: EXCETAB32 PO (08:31)
[2023-07-11] MEDS ORDERED: BUSP5TA PO (08:31)
[2023-07-11 08:58] LABS: CK-MB VALUE MASS < 1.0 NG/ML (<3.6)
[2023-07-11 08:59] LABS: CPK CREATINE PHOSPHOKINASE 52 U/L (46-171); MB/CK RELATIVE INDEX 1.92 (< OR =4)
[2023-07-11 09:06] LABS: LIPASE 79 U/L (12-53)
[2023-07-11 09:08] LABS: ALBUMIN 3.8 G/DL (3.2-5.2); ALKALINE PHOSPHATASE 78 U/L (46-116); ALT/SGPT 14 U/L (7.0-40); AST/SGOT 12 U/L (<34); BILIRUBIN,DIRECT 0.2 MG/DL (<0.4); BILIRUBIN,TOTAL 0.5 MG/DL (0.3-1.2); TOTAL PROTEIN 7.1 G/DL (5.7-8.2)
[2023-07-11] MEDS ORDERED: PANTOPRAZOLE 40MG VIAL IV ONE (09:15)
[2023-07-11] MEDS ORDERED: PROT1TAB2 PO (09:16)
[2023-07-11 09:26] VITALS: BP 119/74; TEMP 96.2; O2SAT 99
== END 2023-07-11 09:32 | disposition home or self-care (01) ==
LOC: M ED 06:49
DX: K21.9 Gastro-esophageal reflux disease without esophagitis (principal); R13.10 Dysphagia, unspecified; I10 Essential (primary) hypertension; F41.9 Anxiety disorder, unspecified; Z79.899 Other long term (current) drug therapy; Z79.1 Long term (current) use of non-steroidal anti-inflammatories (NSAID)
CPT/HCPCS: 71045; 80048; 80076; 82550; 82553; 83690; 84484; 85025; 93005; 93041; 94760; 96374; 99284; C9113